=== PATIENT | male | born 1995 | race African-American/Black ===

== ENCOUNTER 2017-04-19 23:26 | Emergency (ER) | payer OTHER, MEDICAID ==
[~2017-04-19] VITALS: Ht 180.3 cm; Wt 74.0 kg
[2017-04-20 02:18] LABS: BASOPHILS % 0.7 % (0.0-2.0); EOSINOPHILS % 2.1 % (0.0-5.0); HEMATOCRIT. 44.8 % (42.0-52.0); LYMPHOCYTES % 37.9 % (20.0-50.0); MEAN CORPUSCULAR HEMOGLOBIN 27.1 pg (28.0-32.0); MEAN PLATELET VOLUME 8.3 fl (7.4-10.4); MONOCYTES % 8.3 % (2.0-8.0); PLATELET 224 x1000/uL (130-400); RED BLOOD CELL COUNT 5.53 mill/uL (4.7-6.1); RED CELL DISTRIBUTION WIDTH 13.8 % (11.6-14.6)
[2017-04-20 02:20] LABS: CHLORIDE 106 mEq/L (98-107)
[2017-04-20 02:28] LABS: CARBON DIOXIDE 25 mEq/L (21-32); ETHANOL BLOOD < 10 mg/dL
[2017-04-20 03:25] LABS: CLARITY URINE TURBID (CLEAR); COLOR URINE YELLOW (YELLOW); KETONES URINE NEGATIVE (NEGATIVE); LEUKOCYTE ESTERASE URINE NEGATIVE (NEGATIVE); NITRITE URINE NEGATIVE (NEGATIVE); OCCULT BLOOD URINE NEGATIVE (NEGATIVE); PH URINE 8.5 (4.5-8.0); PROTEIN URINE NEGATIVE (NEGATIVE); SPECIFIC GRAVITY URINE 1.023 (1.005-1.030)
[2017-04-20 03:57] LABS: *AMPHETAMINES SCREEN URINE NEGATIVE (NEGATIVE); *BARBITURATES SCREEN URINE NEGATIVE (NEGATIVE); *BENZODIAZEPINES SCREEN URINE NEGATIVE (NEGATIVE); *COCAINE SCREEN URINE NEGATIVE (NEGATIVE); CANNABINOID URINE SCREEN NEGATIVE (NEGATIVE); METHADONE URINE SCREEN NEGATIVE (NEGATIVE); OPIATES URINE SCREEN NEGATIVE (NEGATIVE); PHENCYCLIDINE URINE SCREEN NEGATIVE (NEGATIVE)
[2017-04-20] MEDS ORDERED: LORAZEPAM 1MG TABLET PO ONE (06:00)
[2017-04-20 18:08] VITALS: BP 127/73
== END 2017-04-20 19:43 ==
LOC: ER 23:26
DX: R45.851 Suicidal ideations (principal); F41.0 Panic disorder [episodic paroxysmal anxiety]
CPT/HCPCS: 36415; 80053; 80305; 81001; 85025; 99285; G0482

== ENCOUNTER 2017-05-27 08:59 | Emergency (ER) | payer OTHER, MEDICAID ==
[~2017-05-27] VITALS: Ht 175.3 cm; Wt 68.0 kg
[2017-05-27 09:41] LABS: BASOPHILS % 0.4 % (0.0-2.0); EOSINOPHILS % 3.9 % (0.0-5.0); HEMATOCRIT. 44.3 % (42.0-52.0); HEMOGLOBIN. 14.5 g/dL (14.0-18.0); MEAN CORPUSCULAR HEMOGLOBIN 26.3 pg (28.0-32.0); MEAN CORPUSCULAR VOLUME 80.5 fL (80.0-94.0); MEAN PLATELET VOLUME 8.1 fl (7.4-10.4); MONOCYTES % 6.4 % (2.0-8.0); NEUTROPHILS % 57.3 % (40.0-76.0); PLATELET 198 x1000/uL (130-400); RED BLOOD CELL COUNT 5.51 mill/uL (4.7-6.1); RED CELL DISTRIBUTION WIDTH 14.3 % (11.6-14.6)
[2017-05-27 09:52] LABS: CHLORIDE 103 mEq/L (98-107); ETHANOL BLOOD < 10 mg/dL
[2017-05-27 10:31] LABS: CLARITY URINE CLEAR (CLEAR); COLOR URINE YELLOW (YELLOW); KETONES URINE NEGATIVE (NEGATIVE); LEUKOCYTE ESTERASE URINE NEGATIVE (NEGATIVE); NITRITE URINE NEGATIVE (NEGATIVE); OCCULT BLOOD URINE NEGATIVE (NEGATIVE); PH URINE >=9.0 (4.5-8.0); PROTEIN URINE NEGATIVE (NEGATIVE); SPECIFIC GRAVITY URINE 1.019 (1.005-1.030); UROBILINOGEN URINE 0.2 E.U./dL (0.2-1.0)
[2017-05-27 10:56] LABS: *AMPHETAMINES SCREEN URINE NEGATIVE (NEGATIVE); *BARBITURATES SCREEN URINE NEGATIVE (NEGATIVE); *BENZODIAZEPINES SCREEN URINE NEGATIVE (NEGATIVE); *COCAINE SCREEN URINE NEGATIVE (NEGATIVE); CANNABINOID URINE SCREEN NEGATIVE (NEGATIVE); METHADONE URINE SCREEN NEGATIVE (NEGATIVE); OPIATES URINE SCREEN NEGATIVE (NEGATIVE); PHENCYCLIDINE URINE SCREEN NEGATIVE (NEGATIVE)
[2017-05-28 00:10] VITALS: BP 108/61
== END 2017-05-28 00:24 | disposition home or self-care (01) ==
LOC: ER 09:16
DX: F31.9 Bipolar disorder, unspecified (principal); F17.200 Nicotine dependence, unspecified, uncomplicated; R45.851 Suicidal ideations; F12.10 Cannabis abuse, uncomplicated
CPT/HCPCS: 36415; 80053; 80305; 80307; 80329; 81003; 85025; 99284; G0482; Z7610

== ENCOUNTER 2017-10-17 20:29 | Emergency (ER) | payer OTHER, MEDICAID ==
[~2017-10-17] VITALS: Ht 172.7 cm; Wt 82.0 kg
[2017-10-17] MEDS ORDERED: SODIUM CHLORIDE 0.9% 1,000 ML IV ONE (21:13)
[2017-10-17] MEDS ORDERED: ZIPRASIDONE MESYLATE 20MG/VIAL IM ONE (23:00)
[2017-10-17] MEDS ORDERED: MIDAZOLAM HCL 2 MG/2 ML VIAL IM ONE (23:00)
[2017-10-17 23:29] LABS: CHLORIDE 106 mEq/L (98-107)
[2017-10-17 23:31] LABS: BASOPHILS % 0.4 % (0.0-2.0); EOSINOPHILS % 2.1 % (0.0-5.0); HEMATOCRIT. 44.1 % (42.0-52.0); HEMOGLOBIN. 14.5 g/dL (14.0-18.0); LYMPHOCYTES % 34.2 % (20.0-50.0); MEAN CORPUSCULAR HEMOGLOBIN 26.6 pg (28.0-32.0); MEAN CORPUSCULAR VOLUME 80.9 fL (80.0-94.0); MEAN PLATELET VOLUME 8.5 fl (7.4-10.4); MONOCYTES % 6.2 % (2.0-8.0); NEUTROPHILS % 57.1 % (40.0-76.0); PLATELET 211 x1000/uL (130-400); RED BLOOD CELL COUNT 5.45 mill/uL (4.7-6.1); RED CELL DISTRIBUTION WIDTH 14.1 % (11.6-14.6)
[2017-10-17 23:32] LABS: ETHANOL BLOOD < 10 mg/dL
[2017-10-17] MEDS ORDERED: MIDAZOLAM HCL 2 MG/2 ML VIAL IV ONE (23:45)
[2017-10-18 00:20] LABS: CANNABINOID URINE SCREEN PRESUMTIVE POSITIVE (NEGATIVE); PHENCYCLIDINE URINE SCREEN NEGATIVE (NEGATIVE)
[2017-10-18 00:21] LABS: *AMPHETAMINES SCREEN URINE NEGATIVE (NEGATIVE); *BARBITURATES SCREEN URINE NEGATIVE (NEGATIVE); *BENZODIAZEPINES SCREEN URINE NEGATIVE (NEGATIVE); *COCAINE SCREEN URINE NEGATIVE (NEGATIVE); METHADONE URINE SCREEN NEGATIVE (NEGATIVE); OPIATES URINE SCREEN NEGATIVE (NEGATIVE)
[2017-10-18 17:22] VITALS: BP 120/77
== END 2017-10-18 19:11 ==
LOC: ER 21:24
DX: F12.10 Cannabis abuse, uncomplicated (principal); F32.9 Major depressive disorder, single episode, unspecified; F20.9 Schizophrenia, unspecified; Z04.6 Encounter for general psychiatric examination, requested by authority
CPT/HCPCS: 36415; 70450; 80048; 80305; 80307; 80329; 82962; 85025; 96361; 96372; 96374; 99285; G0482; J2250; J3486; J7030; Z7610

== ENCOUNTER 2018-01-16 11:29 | Emergency (ER) | payer OTHER, MEDICAID ==
[~2018-01-16] VITALS: Ht 177.8 cm; Wt 83.0 kg
[2018-01-16 13:14] LABS: BASOPHILS % 0.4 % (0.0-2.0); EOSINOPHILS % 1.7 % (0.0-5.0); HEMATOCRIT. 44.2 % (42.0-52.0); HEMOGLOBIN. 14.8 g/dL (14.0-18.0); LYMPHOCYTES % 23.8 % (20.0-50.0); MEAN PLATELET VOLUME 8.4 fl (7.4-10.4); MONOCYTES % 8.1 % (2.0-8.0); PLATELET 204 x1000/uL (130-400); RED BLOOD CELL COUNT 5.46 mill/uL (4.7-6.1); RED CELL DISTRIBUTION WIDTH 13.8 % (11.6-14.6)
[2018-01-16 13:20] LABS: CHLORIDE 105 mEq/L (98-107)
[2018-01-16 13:25] LABS: ETHANOL BLOOD < 10 mg/dL
[2018-01-16 13:29] LABS: CLARITY URINE CLEAR (CLEAR); COLOR URINE YELLOW (YELLOW); KETONES URINE 2+ (NEGATIVE); LEUKOCYTE ESTERASE URINE TRACE (NEGATIVE); NITRITE URINE NEGATIVE (NEGATIVE); OCCULT BLOOD URINE NEGATIVE (NEGATIVE); PH URINE 8.5 (4.5-8.0); PROTEIN URINE NEGATIVE (NEGATIVE); SPECIFIC GRAVITY URINE 1.028 (1.005-1.030)
[2018-01-16 14:07] LABS: METHADONE URINE SCREEN NEGATIVE (NEGATIVE); OPIATES URINE SCREEN NEGATIVE (NEGATIVE)
[2018-01-16 14:08] LABS: *AMPHETAMINES SCREEN URINE NEGATIVE (NEGATIVE); *BARBITURATES SCREEN URINE NEGATIVE (NEGATIVE); *BENZODIAZEPINES SCREEN URINE NEGATIVE (NEGATIVE); *COCAINE SCREEN URINE NEGATIVE (NEGATIVE); CANNABINOID URINE SCREEN PRESUMTIVE POSITIVE (NEGATIVE); PHENCYCLIDINE URINE SCREEN NEGATIVE (NEGATIVE)
[2018-01-17 00:25] VITALS: BP 120/73
== END 2018-01-17 00:45 ==
LOC: ER 12:00
DX: R45.851 Suicidal ideations (principal); F32.9 Major depressive disorder, single episode, unspecified; F20.9 Schizophrenia, unspecified
CPT/HCPCS: 36415; 80053; 80305; 80307; 80329; 81003; 82962; 85025; 99285; G0482

== ENCOUNTER 2020-08-24 08:42 | Emergency (ER) | payer OTHER, MEDICAID ==
[~2020-08-24] VITALS: Ht 177.8 cm; Wt 82.0 kg
[2020-08-24] MEDS ORDERED: FLUO10CA25 PO (08:49)
[2020-08-24 10:52] LABS: BASOPHILS % 0.1 % (0.0-2.0); EOSINOPHILS % 1.2 % (0.0-5.0); HEMATOCRIT. 45.7 % (42.0-52.0); HEMOGLOBIN. 15.3 g/dL (14.0-18.0); LYMPHOCYTES % 13.3 % (20.0-50.0); MEAN CORPUSCULAR HEMOGLOBIN 27.6 pg (28.0-32.0); MEAN CORPUSCULAR VOLUME 82.4 fL (80.0-94.0); MEAN PLATELET VOLUME 8.7 fl (7.4-10.4); MONOCYTES % 4.1 % (2.0-8.0); NEUTROPHILS % 81.3 % (40.0-76.0); PLATELET 173 x1000/uL (130-400); RED BLOOD CELL COUNT 5.55 mill/uL (4.7-6.1); RED CELL DISTRIBUTION WIDTH 14.4 % (11.6-14.6)
[2020-08-24 10:58] LABS: CHLORIDE 108 mEq/L (98-107)
[2020-08-24 11:00] LABS: CLARITY URINE CLEAR (CLEAR); COLOR URINE YELLOW (YELLOW); KETONES URINE NEGATIVE (NEGATIVE); LEUKOCYTE ESTERASE URINE NEGATIVE (NEGATIVE); NITRITE URINE NEGATIVE (NEGATIVE); OCCULT BLOOD URINE NEGATIVE (NEGATIVE); PROTEIN URINE NEGATIVE (NEGATIVE); SPECIFIC GRAVITY URINE 1.005 (1.005-1.030)
[2020-08-24 11:02] LABS: ETHANOL BLOOD < 10 mg/dL
[2020-08-24 11:18] LABS: *COCAINE SCREEN URINE NEGATIVE (NEGATIVE)
[2020-08-24 11:19] LABS: *AMPHETAMINES SCREEN URINE NEGATIVE (NEGATIVE); *BENZODIAZEPINES SCREEN URINE NEGATIVE (NEGATIVE); CANNABINOID URINE SCREEN PRESUMTIVE POSITIVE (NEGATIVE); METHADONE URINE SCREEN NEGATIVE (NEGATIVE); OPIATES URINE SCREEN NEGATIVE (NEGATIVE); PHENCYCLIDINE URINE SCREEN NEGATIVE (NEGATIVE)
[2020-08-24 11:26] LABS: *BARBITURATES SCREEN URINE NEGATIVE (NEGATIVE)
[2020-08-24] MEDS ORDERED: OLANZAPINE 10 MG/VIAL IM ONE (13:30)
[2020-08-24 19:43] VITALS: BP 121/74
== END 2020-08-24 19:43 | disposition short-term general hospital (02) ==
LOC: ER 09:01
DX: R45.851 Suicidal ideations (principal); F32.9 Major depressive disorder, single episode, unspecified; F20.9 Schizophrenia, unspecified; Z20.822 Contact with and (suspected) exposure to COVID-19
CPT/HCPCS: 36415; 80053; 80305; 80307; 80320; 80329; 81003; 85025; 87426; 96372; 99285; J3490; Z7610; G0480

== ENCOUNTER 2020-09-24 21:08 | Inpatient (IN) | payer OTHER, MEDICAID ==
[~2020-09-24] VITALS: Ht 182.9 cm; Wt 73.5 kg
[~2020-09-24 21:08] MED LIST: FLUO10CA25 PO
[2020-09-24] MEDS ORDERED: LORAZEPAM 2MG/ML CPJ IM STA (21:15)
[2020-09-24] MEDS ORDERED: OLANZAPINE 10 MG/VIAL IM STA (21:15)
[2020-09-24] MEDS ORDERED: DIPHENHYDRAMINE 50MG CAPSULE PO STA (21:15)
[2020-09-24] MEDS ORDERED: LORAZEPAM 2MG/ML CPJ IV ONE ×3 (21:30→23:45)
[2020-09-24] MEDS ORDERED: SODIUM CHLORIDE 0.9% 1,000 ML IV ONE ×2 (21:45)
[2020-09-24 21:50] LABS: BASOPHILS % 0.4 % (0.0-2.0); HEMATOCRIT. 43.6 % (42.0-52.0); HEMOGLOBIN. 14.1 g/dL (14.0-18.0); LYMPHOCYTES % 30.6 % (20.0-50.0); MEAN CORPUSCULAR HEMOGLOBIN 26.9 pg (28.0-32.0); MEAN CORPUSCULAR VOLUME 83.2 fL (80.0-94.0); MEAN PLATELET VOLUME 9.1 fl (7.4-10.4); PLATELET 174 x1000/uL (130-400); RED BLOOD CELL COUNT 5.23 mill/uL (4.7-6.1); RED CELL DISTRIBUTION WIDTH 14.5 % (11.6-14.6)
[2020-09-24 21:54] LABS: CLARITY URINE CLEAR (CLEAR); COLOR URINE YELLOW (YELLOW); KETONES URINE NEGATIVE (NEGATIVE); LEUKOCYTE ESTERASE URINE NEGATIVE (NEGATIVE); NITRITE URINE NEGATIVE (NEGATIVE); OCCULT BLOOD URINE NEGATIVE (NEGATIVE); PROTEIN URINE NEGATIVE (NEGATIVE); SPECIFIC GRAVITY URINE 1.002 (1.005-1.030); UROBILINOGEN URINE 0.2 E.U./dL (0.2-1.0)
[2020-09-24 21:58] LABS: CHLORIDE 103 mEq/L (98-107)
[2020-09-24 22:03] LABS: ETHANOL BLOOD < 10 mg/dL
[2020-09-24 22:05] LABS: *AMPHETAMINES SCREEN URINE NEGATIVE (NEGATIVE); CANNABINOID URINE SCREEN PRESUMTIVE POSITIVE (NEGATIVE); PHENCYCLIDINE URINE SCREEN NEGATIVE (NEGATIVE)
[2020-09-24 22:06] LABS: *BARBITURATES SCREEN URINE NEGATIVE (NEGATIVE); *BENZODIAZEPINES SCREEN URINE NEGATIVE (NEGATIVE); *COCAINE SCREEN URINE NEGATIVE (NEGATIVE)
[2020-09-24 22:07] LABS: CREATINE KINASE 197 IU/L (39-308)
[2020-09-24 22:07] LABS: METHADONE URINE SCREEN NEGATIVE (NEGATIVE); OPIATES URINE SCREEN NEGATIVE (NEGATIVE)
[2020-09-24] MEDS ORDERED: ATROPINE SULFATE 1MG/10ML SYR IV ONE (22:15)
[2020-09-25 03:40] LABS: BG BASE EXCESS -2.2 mmol/L (-2.0-2.0); BG CARBOXYHEMOGLOBIN 0.1 % (0.5-1.5); BG DEOXYHEMOGLOBIN 2.9 % (0.0-5.0); BG FRACTION INSPIRED OXYGEN 21; BG HCO3 ACT 23.9 mmol/L (22.0-26.0); BG METHEMOGLOBIN 0.4 % (0.0-1.5); BG OXYGEN SATURATION 97.1 % (92.0-98.5); BG OXYHEMOGLOBIN 96.6 % (94.0-97.0); BG PH 7.334 (7.350-7.450); BG PO2 98.5 mmHg (75.0-100.0); BG SAMPLE SITE RIGHT BRACHIAL; BG TOTAL HEMOGLOBIN 14.1 g/dL (12.0-18.0); BG VENT MODE ROOM AIR
[2020-09-25] MEDS ORDERED: DEXT 5%/0.9% NACL 1,000 ML IV SCH (04:00)
[2020-09-25 11:25] LABS: BASOPHILS % 0.4 % (0.0-2.0); HEMATOCRIT. 45.1 % (42.0-52.0); HEMOGLOBIN. 15.2 g/dL (14.0-18.0); LYMPHOCYTES % 15.5 % (20.0-50.0); MEAN CORPUSCULAR HEMOGLOBIN 27.9 pg (28.0-32.0); MEAN CORPUSCULAR VOLUME 82.6 fL (80.0-94.0); MEAN PLATELET VOLUME 8.7 fl (7.4-10.4); MONOCYTES % 7.8 % (2.0-8.0); NEUTROPHILS % 75.3 % (40.0-76.0); PLATELET 176 x1000/uL (130-400); RED BLOOD CELL COUNT 5.46 mill/uL (4.7-6.1); RED CELL DISTRIBUTION WIDTH 14.7 % (11.6-14.6)
[2020-09-25 11:30] LABS: CHLORIDE 112 mEq/L (98-107)
[2020-09-25 11:32] LABS: D-DIMER 0.28 mg/L FEU (<0.50); INR 1.1; PROTHROMBIN TIME 11.3 sec (9.6-11.0)
[2020-09-25 11:37] LABS: LDL CHOLESTEROL 53 mg/dL (5-100)
[2020-09-25 11:39] LABS: HDL CHOLESTEROL 73 mg/dL (40-59); T4 FREE 0.94 ng/dL (0.76-1.46)
[2020-09-25] MEDS ORDERED: LORAZEPAM 2MG/ML CPJ IV NR (15:15)
[2020-09-25 15:43] LABS: CREATINE KINASE MB FRACTION 7.8 ng/mL (0.5-3.6)
[2020-09-25] MEDS: HALOPERIDOL LACTATE 5MG/ML VIAL IM PRN (17:34)
[2020-09-25] MEDS: CLOPIDOGREL 75MG TABLET PO SCH (19:28)
[2020-09-25] MEDS ORDERED: HALOPERIDOL LACTATE 5MG/ML VIAL IM ONE (20:00)
[2020-09-25] MEDS: SODIUM CHLORIDE 0.9% 1,000 ML IV SCH ×2 (21:02→23:48)
[2020-09-25] MEDS: QUETIAPINE FUMARATE 50MG TABLET PO SCH (21:14)
[2020-09-25] MEDS: ENOXAPARIN 80MG/0.8ML SYR SUBCUT SCH (21:15)
[2020-09-25] MEDS ORDERED: FOLIC ACID 1 MG, THIAMINE HCL 100 MG, MVI, ADULT NO.1 10 ML in DEXTROSE 5% WATER 1,000 ML IV ONE (21:30)
[2020-09-25 22:20] VITALS: BP 111/55
[2020-09-25 23:32] LABS: CREATINE KINASE MB FRACTION 8.9 ng/mL (0.5-3.6)
[2020-09-26] VITALS (19 sets, daily range): BP systolic 81–140; BP diastolic 41–82
[2020-09-26 06:22] LABS: CREATINE KINASE MB FRACTION 21.4 ng/mL (0.5-3.6)
[2020-09-26] MEDS: QUETIAPINE FUMARATE 50MG TABLET PO SCH ×2 (08:51→20:49)
[2020-09-26] MEDS: ASPIRIN 81MG TABLET PO SCH (08:51)
[2020-09-26] MEDS: ENOXAPARIN 80MG/0.8ML SYR SUBCUT SCH ×2 (08:51→20:49)
[2020-09-26] MEDS: CLOPIDOGREL 75MG TABLET PO SCH (09:47)
[2020-09-26] MEDS: SODIUM CHLORIDE 0.9% 1,000 ML IV SCH (12:10)
[2020-09-26 17:23] LABS: BASOPHILS % 0.5 % (0.0-2.0); EOSINOPHILS % 2.6 % (0.0-5.0); HEMOGLOBIN. 12.5 g/dL (14.0-18.0); LYMPHOCYTES % 32.5 % (20.0-50.0); MEAN CORPUSCULAR HEMOGLOBIN 27.8 pg (28.0-32.0); MEAN CORPUSCULAR VOLUME 82.2 fL (80.0-94.0); MEAN PLATELET VOLUME 8.6 fl (7.4-10.4); MONOCYTES % 7.3 % (2.0-8.0); NEUTROPHILS % 57.1 % (40.0-76.0); PLATELET 155 x1000/uL (130-400); RED CELL DISTRIBUTION WIDTH 14.4 % (11.6-14.6)
[2020-09-26 17:30] LABS: CHLORIDE 113 mEq/L (98-107)
[2020-09-26 17:41] LABS: CREATINE KINASE MB FRACTION 14.7 ng/mL (0.5-3.6)
[2020-09-26 17:51] LABS: CREATINE KINASE 1375 IU/L (39-308)
[2020-09-26] MEDS ORDERED: LOV80 SUBCUT (21:34)
[2020-09-26] MEDS ORDERED: CLOP75TA15 PO (21:34)
[2020-09-26] MEDS ORDERED: QUET50TA PO (21:34)
[2020-09-26] MEDS ORDERED: ASPI-1160 PO (21:34)
[2020-09-27] VITALS (19 sets, daily range): BP systolic 81–120; BP diastolic 28–69
[2020-09-27] MEDS: HALOPERIDOL LACTATE 5MG/ML VIAL IM PRN (00:52)
[2020-09-27] MEDS: CLOPIDOGREL 75MG TABLET PO SCH (08:43)
[2020-09-27] MEDS: QUETIAPINE FUMARATE 50MG TABLET PO SCH ×2 (08:43→20:32)
[2020-09-27] MEDS: ENOXAPARIN 80MG/0.8ML SYR SUBCUT SCH ×2 (08:43→20:36)
[2020-09-27] MEDS: ASPIRIN 81MG TABLET PO SCH (08:43)
[2020-09-27] MEDS: SODIUM CHLORIDE 0.9% 1,000 ML IV SCH (14:50)
== END 2020-09-27 23:30 | disposition short-term general hospital (02) | DRG 918 ==
LOC: ER 21:08 → 5EST 22:34 → EDBEDREQSVC 09-25 07:50 → ENRESERV 09-25 19:26
PROVIDERS: ADMIT Family Medicine; ATTEND Family Medicine
PROC: 4A10X4Z Monitoring of Central Nervous Electrical Activity, External Approach (ICD-10-PCS; principal; 2020-09-26)
DX: T40.7X1A Poisoning by cannabis (derivatives), accidental (unintentional), initial encounter (principal); G93.40 Encephalopathy, unspecified; R45.851 Suicidal ideations; M62.82 Rhabdomyolysis; I95.9 Hypotension, unspecified; I10 Essential (primary) hypertension; F32.9 Major depressive disorder, single episode, unspecified; F17.210 Nicotine dependence, cigarettes, uncomplicated; F20.9 Schizophrenia, unspecified; Z20.822 Contact with and (suspected) exposure to COVID-19; R77.8 Other specified abnormalities of plasma proteins; R25.8 Other abnormal involuntary movements; Y92.89 Other specified places as the place of occurrence of the external cause; Z79.899 Other long term (current) drug therapy; Z78.1 Physical restraint status; Z79.82 Long term (current) use of aspirin
CPT/HCPCS: 36415; 36600; 71045; 80053; 80061; 80305; 80307; 80320; 80329; 81003; 82375; 82550; 82553; 82805; 82962; 83036; 83735; 83880; 84439; 84443; 84484; 85025; 85379; 87426; 93005; 93306; 95816; 99291; J1630; J1650; J2060; J3411; J3490; J7030; J7070; Q0163; A4315; G0480

== ENCOUNTER 2021-07-01 19:39 | Emergency (ER) | payer OTHER, MEDICAID ==
[~2021-07-01] VITALS: Ht 172.7 cm; Wt 65.0 kg
[~2021-07-01 19:39] MED LIST changes: +ASPI-1160 PO; +CLOP75TA15 PO; +LOV80 SUBCUT; +QUET50TA PO
[2021-07-01 19:52] VITALS: BP 117/78
== END 2021-07-01 22:59 | disposition left against medical advice (07) ==
LOC: ER 19:39
DX: Z13.9 Encounter for screening, unspecified (principal)
CPT/HCPCS: 99281